=== PATIENT | male | born 1955 | race Two or more races ===

== ENCOUNTER 2023-11-30 11:49 | Emergency (ER) | payer BC, OTHER ==
[~2023-11-30] VITALS: Ht 177.8 cm; Wt 70.0 kg
[~2023-11-30 11:49] MED LIST: ASPI-529 PO; FERR1TAB9 PO; METO-410 PO; [UNRECOGNIZED DRUG - CODE] PO
[2023-11-30 11:57] VITALS: BP 156/72; PULSE 68; TEMP 97.8; O2SAT 98
[2023-11-30] MEDS ORDERED: ketorolac trometh inj. 60 MG/2 ML VIAL IM ONE (17:05)
[2023-11-30 17:14] VITALS: RESP 17
[2023-11-30] MEDS: ketorolac tromethamine 15mg/ml inj. IM ONE (17:14)
[2023-11-30] MEDS: dexamethasone sod phosphate 10mg/ml inj IM STA (17:14)
[2023-11-30] MEDS ORDERED: AMOX-117 PO (17:32)
== END 2023-11-30 18:10 | disposition home or self-care (01) ==
LOC: ER 11:49
DX: L02.01 Cutaneous abscess of face (principal); K59.00 Constipation, unspecified
CPT/HCPCS: 96372; 99284; J1100; J1885